=== PATIENT | male | born 1960 | race African-American/Black ===

== ENCOUNTER 2018-03-01 00:23 | Emergency (ER) | payer OTHER ==
[~2018-03-01] VITALS: Ht 180.3 cm; Wt 88.5 kg
[2018-03-01] MEDS ORDERED: LIPITOR10 MG PO (00:37)
[2018-03-01] MEDS ORDERED: CIALIS2.5 MG PO (00:37)
[2018-03-01] MEDS ORDERED: NORVASC5 MG PO (00:37)
[2018-03-01] MEDS ORDERED: KEFLEX500 M1 PO ×2 (00:58→02:27)
[2018-03-01 01:45] LABS: CALCIUM 8.9 mg/dL (8.5-10.1); CREATININE 1.1 mg/dL (0.6-1.3); POTASSIUM 3.9 mmol/L (3.5-5.1)
[2018-03-01 01:48] LABS: URIC ACID* 6.6 mg/dL (2.6-7.2)
[2018-03-01 02:41] VITALS: BP 117/74
== END 2018-03-01 02:41 | disposition home or self-care (01) ==
LOC: M.ERS 00:23
PROVIDERS: Emergency Medicine Emergency Medical Services
DX: S93.401A Sprain of unspecified ligament of right ankle, initial encounter (principal); S80.861A Insect bite (nonvenomous), right lower leg, initial encounter; W57.XXXA Bitten or stung by nonvenomous insect and other nonvenomous arthropods, initial encounter; Y93.89 Activity, other specified; Y92.89 Other specified places as the place of occurrence of the external cause; Y99.8 Other external cause status

== ENCOUNTER → 2020-02-23 | Outpatient (CLI) | payer OTHER ==
[~2020-02-23] MED LIST: CIALIS2.5 MG PO; KEFLEX500 M1 PO; LIPITOR10 MG PO; NORVASC5 MG PO
--- NOTE | 2020-02-23 17:16 | CARDNUC ---
[place] [address] CARDIAC NUCLEAR IMAGING REPORT Name: NICHOLAS PADGETT V Room: [facility]#: [id number] Admission: 02/23/20 Attend Phys: Teofilo Haji, Discharge: Date of : 64 Date of Service: 02/23/20 1715 Report #: [id number] THIS REPORT FOR: cc: Presley Brown,Presley Hanna,Teofilo Oviedo MD [facility] ~ APPROVED REPORT Imaging Protocol: Rest Tc-99m/Stress Tc-99m 1 day Study performed: 02/23/2020 09:37:50 Indication: Chest pain, Dyspnea, Right arm pain/numbness/tingling. Patient Location: Out-Patient Stress Tech: Bibiana Bernabe Stress Nurse: Debbie Aden RN NM Tech:MIGUEL Hayes Ht: 5 ft 11 in Wt: 205 lbs BSA: 2.13 m2 BMI: 28.58 Medical History Medical History: Precordial pain, dyspnea, right arm pain/numbness/tingling, HTN, HLD, family HX of CAD. Medications: Amlodipine-benazepril, ASA 81 Mg, Atorvastatin, Carvedilol. Allergies: No known drug allergies Cardiac Risk Factors: Age, FHX of CAD, HTN, Hyperlipidemia, SOB. Previous Cardiac Procedures: None Pretest Chest Pain Characteristics: No chest pain Exercise History: Physically active Physical Disabilities: None Meds Held (24 hrs): Carvedilol. Resting Data Rest SPECT myocardial perfusion imaging was performed in supine position 30 minutes following the intravenous injection of 11.2 mCi of Tc-99m Sestamibi. Time of rest injection: 804 Date: 02/23/2020 The images were gated to evaluate regional wall motion and calculate left ventricular ejection fraction. Administration Route: IV Administration Site: [place] [address] CARDIAC NUCLEAR IMAGING REPORT Name: NICHOLAS PADGETT V Room: [facility]#: [id number] Admission: 02/23/20 Attend Phys: Teofilo Haji, Discharge: Date of : 64 Date of Service: 02/23/20 1715 Report #: [id number] Exercise Stress At peak stress, the patient was injected intravenously with 29.4mCi of Tc-99m Sestamibi. Time of stress injection: 934 Date: 02/23/2020 Administration Route: IV Administration Site: Right Hand Gated Stress SPECT was performed 30 minutes after stress injection. The images were gated to evaluate regional wall motion and calculate left ventricular ejection fraction. Prone imaging was performed. Stress Test Details Stress Test: Exercise stress testing was performed using a Heath protocol. HR Max Heart Rate (APMHR): 163 bpm Resting HR: 58 bpm Target HR (85% APMHR): 138 bpm Max HR Achieved: 154 bpm % of APMHR: 94 Recovery HR: 80 bpm BP Resting BP: 141/83 mmHg Max BP: 246/72 mmHg Recovery BP: 134/81 mmHg ECG Resting ECG: Sinus Rhythm Stress ECG: Sinus Tachycardia ST Change: None Arrhythmia: None Recovery ECG: Sinus Rhythm Recovery ST Change: None Recovery Arrhythmia: None Clinical Reason for Termination: Completed protocol, Maximal effort, Patient Request. Stress Symptoms: Dyspnea, Fatigue. Exercise duration: 10 min 00 sec Exercise capacity: 11.79 METs Overall Exercise Capacity for Age: Superior The patient tolerated standard Heath protocol exercise without [place] [address] CARDIAC NUCLEAR IMAGING REPORT Name: NICHOLAS PADGETT V Room: [facility]#: [id number] Admission: 02/23/20 Attend Phys: Teofilo Haji, Discharge: Date of : 64 Date of Service: 02/23/20 1715 Report #: [id number] Nurse Comments A 59 year old male presented for a Heath Protocol Nuclear Stress Test r/t Precordial pain, Dyspnea, Right arm pain/numbness/tingling. Treadmill tolerated well to Stage 4. Recovery unremarkable. Patient was escorted by staff to Nuclear Medicine for imaging. Patient was stable and stated he felt good at that time. Exercise capacity - Normal to Superior. Stress ECG Conclusion The baseline twelve-lead EKG shows sinus rhythm without significant ST segment or T wave abnormality. EKGs obtained during and post exercise show sinus rhythm and sinus tachycardia with no significant ST segment changes when compared to baseline. There were no stress-induced arrhythmias. Study Quality Study: Good Artifact: No artifact Study Data At rest, the left ventricular ejection fraction was 64%.. Post stress, the left ventricular ejection was 62%.. TID = 0.97. Perfusion Perfusion images obtained at rest and post exercise stress showed uniform uptake of the radioisotope throughout the myocardium without defect. Wall Motion Normal left ventricular wall motion. Nuclear Conclusion ECG Findings: negative for ischemia Clinical Findings: negative for ischemia Nuclear Findings: negative for ischemia Exercise Capacity: normal Left Ventricular Function: normal Risk Study: low Perfusion images show no defect to suggest infarct or ischemia. Left ventricular systolic function appears normal on gated studies. This is a low risk study. <Conclusion> The baseline twelve-lead EKG shows sinus rhythm without significant ST segment or T wave abnormality. EKGs [place] [address] CARDIAC NUCLEAR IMAGING REPORT Name: NICHOLAS PADGETT V Room: [facility]#: [id number] Admission: 02/23/20 Attend Phys: Teofilo Haji, Discharge: Date of : 64 Date of Service: 02/23/20 1715 Report #: [id number] exercise show sinus rhythm and sinus tachycardia with no significant ST segment changes when compared to baseline. There were no stress-induced arrhythmias. <ELECTRONICALLY SIGNED> By: Teofilo Haji MD, FACC 02/23/201714 14 14 Teofilo Haji MD, FACC /INF
== END ==
LOC: M.NUC 01-21 09:59
PROVIDERS: ATTEND Internal Medicine Cardiovascular Disease
DX: R07.2 Precordial pain (principal); R06.09 Other forms of dyspnea